=== PATIENT | male | born 1990 | race American Indian/Alaskan Native ===

== ENCOUNTER 2021-07-03 10:07 | Emergency (ER) | payer OTHER ==
--- NOTE | 2021-07-03 14:51 | Emergency Department Report ---
ED Headache HPI - General Chief Complaint: Headache Stated Complaint: HEAD PAIN Time Seen by Provider: 07/03/21 14:17 - History of Present Illness Initial Comments: 30-year-old male presents to the ER today with complaints of a headache. Patient reports that has been having these headaches for the past 4 weeks intermittently. He described as a throbbing pain is located in his right frontal/right forehead. He states that has been taking Excedrin without much relief. He states that pain seems to be worse with light and noise. Seems to improve with ice or been in a cool area. He denies any recent head injury. He denies any neck pain, fever, chills, vision change, slurred speech or any additional symptoms Patient does admit that he actually has been having similar headaches off and on since last year. He did follow-up with his primary care doctor who told him it could be migraine or cluster headaches. He states that he was prescribed a medication but he never got it filled because he states "I do not like taking medications". Patient states that he is never followed up with a neurologist for his headache. He states that he does not smoke. He denies any illicit drug use. Timing/Duration: other (4 weeks ago ) Quality: moderate, throbbing Allergies/Adverse Reactions: Allergies No Known Allergies Allergy (Verified 07/03/21 10:59) Home Medications: Ambulatory Orders Butalb/Acetamin/Caff 50-325-40 [Fioricet 50-325-40] 1 each PO Q4H PRN #12 tab 07/03/21 Ketorolac [Toradol] 10 mg PO Q6H PRN #20 tab 07/03/21 ED Review of Systems ROS: Stated complaint: HEAD PAIN Other details as noted in HPI Comment: All other systems reviewed and negative Constitutional: denies: chills, fever Eyes: denies: eye pain, eye discharge, vision change ENT: denies: ear pain, throat pain Respiratory: denies: cough, shortness of breath, SOB with exertion, SOB at rest, wheezing Cardiovascular: denies: chest pain, palpitations Endocrine: no symptoms reported Gastrointestinal: denies: abdominal pain, nausea, vomiting, diarrhea, constipation, hematemesis, melena, hematochezia Genitourinary: denies: urgency, dysuria, frequency, hematuria, discharge, testicular pain, testicular mass Musculoskeletal: denies: back pain, joint swelling, arthralgia Skin: denies: rash, lesions, change in color, change in hair/nails, pruritus Neurological: headache. denies: numbness, paresthesias, confusion, abnormal gait, vertigo Psychiatric: denies: anxiety, depression, auditory hallucinations, visual hallucinations, homicidal thoughts, suicidal thoughts Hematological/Lymphatic: denies: easy bleeding, easy bruising, swollen glands ED Past Medical Hx - Past Medical History Previous Medical History?: No - Surgical History Past Surgical History?: No - Medications Home Medications: Home Medications Medication Instructions Recorded Confirmed Last Taken Type Butalb/Acetamin/Caff 50-325-40 1 each PO Q4H PRN #12 tab 07/03/21 Unknown Rx [Fioricet 50-325-40] Ketorolac [Toradol] 10 mg PO Q6H PRN #20 tab 07/03/21 Unknown Rx ED Physical Exam - General Limitations: No Limitations General appearance: alert, in no apparent distress, other (Patient was on his phone with his reported since you listening to something on his phone when I walked in the room. He was not in any acute distress.) - Head Head exam: Present: atraumatic, normocephalic, normal inspection - Eye Eye exam: Present: normal appearance, PERRL, EOMI Pupils: Present: normal accommodation - ENT ENT exam: Present: normal exam, mucous membranes moist - Neck Neck exam: Present: normal inspection, full ROM. Absent: meningismus - Respiratory Respiratory exam: Present: normal lung sounds bilaterally. Absent: respiratory distress, wheezes, rales, rhonchi - Cardiovascular Cardiovascular Exam: Present: regular rate, normal rhythm, normal heart sounds - Neurological Exam Neurological exam: Present: alert, oriented X3, CN II-XII intact, normal gait - Psychiatric Psychiatric exam: Present: normal affect, normal mood - Skin Skin exam: Present: intact ED Course Vital Signs 07/03/21 07/03/21 11:01 15:09 Temperature 98.2 F 98.2 F Pulse Rate 79 79 Respiratory 18 14 Rate Blood Pressure 126/54 Blood Pressure 121/78 [Right] O2 Sat by Pulse 95 99 Oximetry ED Medical Decision Making - Medical Decision Making The patient presented to the emergency department with a headache which she states has been intermittent for 4 weeks, but is also had similar headaches in the past year. The patient is now resting comfortably and he was actually listening to something on his phone when I walked in the room and did not appear to be in any acute distress. He is alert, awake and oriented x3. The patient appears well and he is not toxic. The examination is unremarkable and benign. The patient is neurologically intact, has a normal mental status, and is ambulatory in the ER. The history, exam, diagnostic testing and the patient's current condition does not suggest meningitis, stroke, sepsis, subarachnoid hem orrhage, intracranial bleeding, encephalitis, temporal arteritis or other significant pathology to warrant further testing, continued ED treatment, admission, neurological consultation or other specialist evaluation at this point. The vital signs have been stable. The patient's condition is stable and appropriate for discharge. The patient will pursue further outpatient evaluation with the primary care physician or other designated or consulting physician as indicated in the discharge instruction. Critical care attestation.: If time is entered above; I have spent that time in minutes in the direct care of this critically ill patient, excluding procedure time. ED Disposition Clinical Impression: Chronic headache Disposition: 01 HOME / SELF CARE / HOMELESS Is pt being admited?: No Does the pt Need Aspirin: No Condition: Stable Instructions: General Headache Without Cause, [id number] Additional Instructions: I recommend taking the fioricet and the toradol as prescribed to help your AVERY. It is important that you follow up with neurologist for further evaluation of your head. Neurologist will be listed for on your discharge instructions. Return to ED if worse. Prescriptions: Butalb/Acetamin/Caff 50-325-40 [Fioricet 50-325-40] 1 each PO Q4H PRN #12 tab PRN Reason: Headache Ketorolac [Toradol] 10 mg PO Q6H PRN #20 tab PRN Reason: Pain Referrals: [facility] [Provider Group] - 3-5 Days Forms: Work/School Release Form(ED) Time of Disposition: 14:51
[2021-07-03 15:10] VITALS: BP 121/78
== END 2021-07-03 15:10 | disposition home or self-care (01) ==
LOC: ED 10:07
DX: G44.221 Chronic tension-type headache, intractable (principal)
CPT/HCPCS: 99282